=== PATIENT | male | born 1940 | race Caucasian/White ===

== ENCOUNTER → 2020-06-30 13:53 | Outpatient (BNVA) | payer MEDICARE, SELFPAY | PROVIDERS: PCP Nurse Practitioner Family; Referring Provider Nurse Practitioner Family; Visit Provider Nurse Practitioner Family | DX: I48.20 Chronic atrial fibrillation, unspecified (principal); Z51.81 Encounter for therapeutic drug level monitoring; Z79.01 Long term (current) use of anticoagulants | CPT/HCPCS: 85610; 99211 ==

== ENCOUNTER → 2020-07-14 13:17 | Outpatient (BNVA) | payer MEDICARE, SELFPAY | PROVIDERS: PCP Nurse Practitioner Family; Visit Provider Internal Medicine | DX: I48.20 Chronic atrial fibrillation, unspecified (principal); Z51.81 Encounter for therapeutic drug level monitoring; Z79.01 Long term (current) use of anticoagulants | CPT/HCPCS: 85610 ==

== ENCOUNTER → 2020-08-16 14:23 | Outpatient (BNVA) | payer MEDICARE, SELFPAY | PROVIDERS: PCP Nurse Practitioner Family; Visit Provider Internal Medicine | DX: I48.20 Chronic atrial fibrillation, unspecified (principal); Z51.81 Encounter for therapeutic drug level monitoring; Z79.01 Long term (current) use of anticoagulants | CPT/HCPCS: 85610; 99211 ==

== ENCOUNTER → 2020-08-23 13:27 | Outpatient (BNVA) | payer MEDICARE, SELFPAY | PROVIDERS: PCP Nurse Practitioner Family; Visit Provider Internal Medicine | DX: I48.20 Chronic atrial fibrillation, unspecified (principal); Z51.81 Encounter for therapeutic drug level monitoring; Z79.01 Long term (current) use of anticoagulants | CPT/HCPCS: 85610; 99211 ==

== ENCOUNTER → 2020-08-30 14:06 | Outpatient (BNVA) | payer MEDICARE, SELFPAY | PROVIDERS: PCP Nurse Practitioner Family; Visit Provider Internal Medicine | DX: I48.20 Chronic atrial fibrillation, unspecified (principal); Z51.81 Encounter for therapeutic drug level monitoring; Z79.01 Long term (current) use of anticoagulants | CPT/HCPCS: 85610; 99211 ==

== ENCOUNTER → 2020-09-13 13:54 | Outpatient (BNVA) | payer MEDICARE, SELFPAY | PROVIDERS: PCP Nurse Practitioner Family; Visit Provider Internal Medicine | DX: I48.20 Chronic atrial fibrillation, unspecified (principal); Z51.81 Encounter for therapeutic drug level monitoring; Z79.01 Long term (current) use of anticoagulants | CPT/HCPCS: 85610; 99211 ==

== ENCOUNTER → 2020-09-20 13:35 | Outpatient (BNVA) | payer MEDICARE, SELFPAY | PROVIDERS: PCP Nurse Practitioner Family; Visit Provider Internal Medicine | DX: I48.20 Chronic atrial fibrillation, unspecified (principal); Z79.01 Long term (current) use of anticoagulants; Z51.81 Encounter for therapeutic drug level monitoring | CPT/HCPCS: 85610; 99211 ==

== ENCOUNTER → 2020-09-26 13:00 | Outpatient (BNVA) | payer MEDICARE, SELFPAY | PROVIDERS: PCP Nurse Practitioner Family; Visit Provider Internal Medicine | DX: I48.19 Other persistent atrial fibrillation (principal); I65.22 Occlusion and stenosis of left carotid artery; I10 Essential (primary) hypertension; R94.39 Abnormal result of other cardiovascular function study; F03.90 Unspecified dementia, unspecified severity, without behavioral disturbance, psychotic disturbance, mood disturbance, and anxiety | CPT/HCPCS: 99212 ==

== ENCOUNTER → 2020-09-27 13:20 | Outpatient (BNVA) | payer MEDICARE, SELFPAY | PROVIDERS: PCP Nurse Practitioner Family; Visit Provider Internal Medicine | DX: I48.20 Chronic atrial fibrillation, unspecified (principal); Z51.81 Encounter for therapeutic drug level monitoring; Z79.01 Long term (current) use of anticoagulants | CPT/HCPCS: 85610; 99211 ==

== ENCOUNTER → 2020-10-04 13:36 | Outpatient (BNVA) | payer MEDICARE, SELFPAY | PROVIDERS: PCP Nurse Practitioner Family; Visit Provider Internal Medicine | DX: I48.20 Chronic atrial fibrillation, unspecified (principal); Z51.81 Encounter for therapeutic drug level monitoring; Z79.01 Long term (current) use of anticoagulants | CPT/HCPCS: 85610; 99211 ==

== ENCOUNTER → 2020-10-10 13:06 | Outpatient (BNVA) | payer MEDICARE, SELFPAY | PROVIDERS: PCP Nurse Practitioner Family; Visit Provider Internal Medicine | DX: I48.0 Paroxysmal atrial fibrillation (principal); Z79.01 Long term (current) use of anticoagulants; Z51.81 Encounter for therapeutic drug level monitoring | CPT/HCPCS: 85610; 99211 ==

== ENCOUNTER → 2020-10-21 13:22 | Outpatient (BNVA) | payer MEDICARE, SELFPAY | PROVIDERS: PCP Nurse Practitioner Family; Visit Provider Internal Medicine | DX: I48.20 Chronic atrial fibrillation, unspecified (principal); Z79.01 Long term (current) use of anticoagulants; Z51.81 Encounter for therapeutic drug level monitoring | CPT/HCPCS: 85610 ==

== ENCOUNTER → 2020-10-27 13:06 | Outpatient (BNVA) | payer MEDICARE, SELFPAY | PROVIDERS: PCP Nurse Practitioner Family; Visit Provider Internal Medicine | DX: I48.20 Chronic atrial fibrillation, unspecified (principal); Z51.81 Encounter for therapeutic drug level monitoring; Z79.01 Long term (current) use of anticoagulants | CPT/HCPCS: 85610; 99211 ==

== ENCOUNTER → 2020-11-16 13:47 | Outpatient (BNVA) | payer MEDICARE, SELFPAY | PROVIDERS: PCP Nurse Practitioner Family; Visit Provider Internal Medicine | DX: I48.20 Chronic atrial fibrillation, unspecified (principal); Z51.81 Encounter for therapeutic drug level monitoring; Z79.01 Long term (current) use of anticoagulants | CPT/HCPCS: 85610; 99211 ==

== ENCOUNTER → 2020-11-25 13:18 | Outpatient (BNVA) | payer MEDICARE, SELFPAY | PROVIDERS: PCP Nurse Practitioner Family; Visit Provider Internal Medicine | DX: I48.20 Chronic atrial fibrillation, unspecified (principal); Z51.81 Encounter for therapeutic drug level monitoring; Z79.01 Long term (current) use of anticoagulants | CPT/HCPCS: 85610; 99211 ==

== ENCOUNTER → 2020-12-09 13:23 | Outpatient (BNVA) | payer MEDICARE, SELFPAY | PROVIDERS: PCP Nurse Practitioner Family; Visit Provider Internal Medicine | DX: I48.20 Chronic atrial fibrillation, unspecified (principal); Z51.81 Encounter for therapeutic drug level monitoring; Z79.01 Long term (current) use of anticoagulants | CPT/HCPCS: 85610; 99211 ==

== ENCOUNTER → 2020-12-23 13:01 | Outpatient (BNVA) | payer MEDICARE, SELFPAY | PROVIDERS: PCP Nurse Practitioner Family; Visit Provider Internal Medicine | DX: I48.20 Chronic atrial fibrillation, unspecified (principal); Z51.81 Encounter for therapeutic drug level monitoring; Z79.01 Long term (current) use of anticoagulants | CPT/HCPCS: 85610; 99211 ==

== ENCOUNTER → 2021-01-13 13:24 | Outpatient (BNVA) | payer MEDICARE, SELFPAY | PROVIDERS: PCP Nurse Practitioner Family; Visit Provider Internal Medicine | DX: I48.20 Chronic atrial fibrillation, unspecified (principal); Z51.81 Encounter for therapeutic drug level monitoring; Z79.01 Long term (current) use of anticoagulants | CPT/HCPCS: 85610; 99211 ==

== ENCOUNTER → 2021-02-10 13:41 | Outpatient (BNVA) | payer MEDICARE, SELFPAY | PROVIDERS: PCP Nurse Practitioner Family; Visit Provider Internal Medicine | DX: I48.20 Chronic atrial fibrillation, unspecified (principal); Z51.81 Encounter for therapeutic drug level monitoring; Z79.01 Long term (current) use of anticoagulants | CPT/HCPCS: 85610; 99211 ==

== ENCOUNTER 2021-02-22 14:30 | Outpatient (REF) | payer MEDICARE, SELFPAY ==
[2021-02-22 16:07] LABS: Glucose Urine UA NEG (NEG); Leukocyte Esterase Urine NEG (NEG); Nitrite Urine NEG (NEG); PH 5.5 (5.0-8.0); Specific Gravity - Urine 1.025 (1.005-1.025); Urine Blood 3+ (NEG); Urine Ketones 5 MG/DL (NEG); Urine Protein 2+ MG/DL (NEG-TRACE)
[2021-02-22 16:09] LABS: Appearance Urine CLOUDY; Color Urine BROWN
[2021-02-22 16:16] LABS: Bacteria Urine TRACE /LPF; Hyaline Casts Urine 0-2 /LPF; Mucus Urine TRACE /LPF; RBC Urine TNTC /HPF (0); WBC Urine 0-2 /HPF (0-4)
[2021-02-22 16:26] LABS: Anion Gap 12 (12-20); Blood Urea Nitrogen 27 mg/dL (9-16); Calcium 8.6 mg/dL (8.4-10.2); Carbon Dioxide 25 mmol/L (22-29); Chloride 106 mmol/L (96-108); Estimated Glomerular Filt Rate 41; Glucose Random 109 mg/dL (60-115); Potassium 4.3 mmol/L (3.3-5.1); Sodium 139 mmol/L (135-145)
== END 2021-02-22 14:31 | disposition home or self-care (01) ==
LOC: HO.HMGCLDS 14:30
PROVIDERS: PCP Nurse Practitioner Family; Visit Provider Nurse Practitioner Family
DX: I48.91 Unspecified atrial fibrillation (principal); I95.9 Hypotension, unspecified; R32 Unspecified urinary incontinence
CPT/HCPCS: 36415; 80048; 81001; 87086

== ENCOUNTER 2021-02-23 13:35 | Emergency (ER) | payer OTHER, MEDICARE, SELFPAY ==
--- NOTE | ~2021-02-23 | CT_ITS ---
EXAMINATION: CT HEAD WITHOUT CONTRAST CLINICAL INFORMATION: Confusion, weakness, word finding difficulties. COMPARISON: CT head 09/24/2019 TECHNIQUE: Contiguous axial imaging was performed from the skull base to vertex without intravenous administration of contrast. Additional 2-D coronal and sagittal reformatted images are generated on the CT workstation and uploaded to PACS. This CT examination was performed using dose optimization techniques as appropriate, variously including the following: *Automated exposure control *Adjustment of mA and/or kV according to patient size (this includes techniques or standardized protocols for targeted exams where dose is matched to indication/reason for exam; i.e. extremities or head) *Use of iterative reconstruction technique DLP: 756 mGy-cm FINDINGS: There is no intracranial hemorrhage, hematoma, or extra-axial fluid collection. There is no hydrocephalus, edema, or mass effect. There are atrophic changes with prominence of the cortical sulci and fissures and cisterns similar to prior study. Again, there is moderate bilateral periventricular white matter gliosis consistent with small vessel ischemic changes. Small infarct left caudate head is stable. There are punctate bilateral basal ganglia calcifications again seen. There is no visible acute territorial infarct or mass lesion. The calvarium appears intact. There is no pneumocephalus or orbital emphysema. The visualized sinuses and middle ears and mastoid air cells show no significant mucosal thickening. There are no air-fluid levels. CT/CT head/brain wo con IMPRESSION: 1. No acute intracranial abnormality. 2. Generalized atrophic changes, periventricular white matter gliosis, and small chronic infarct left caudate head, similar to CT had 09/24/2019.
--- NOTE | ~2021-02-23 | XR_ITS ---
EXAMINATION: XR CHEST CLINICAL INFORMATION: Altered mental status, difficult finding words. Weakness, confusion COMPARISON: Chest radiographs 05/20/2020, 05/16/2020 TECHNIQUE: Portable upright AP view of the chest was obtained. FINDINGS: There are accentuated reticular markings at the bilateral lateral bases similar to prior studies. There is no lobar or segmental airspace consolidation, vascular congestion, groundglass opacity, or effusion. The heart is normal in size and the hilar and mediastinal contours are normal. No visible acute bony abnormality. XR/XR chest 1V IMPRESSION: No acute intrathoracic disease.
--- NOTE | ~2021-02-23 | CT_ITS ---
EXAMINATION: CT ABDOMEN AND PELVIS WITHOUT CONTRAST CLINICAL INFORMATION: Abdominal pain, hematuria COMPARISON: Renal ultrasound 04/25/2020, CT abdomen and pelvis 12/31/2006. TECHNIQUE: Multidetector volumetric imaging was performed from the superior aspect of the liver through the pubic symphysis. Sagittal and coronal reformatted images were obtained on the technologist's workstation. No oral or intravenous contrast. This CT examination was performed using dose optimization techniques as appropriate, variously including the following: *Automated exposure control *Adjustment of mA and/or kV according to patient size (this includes techniques or standardized protocols for targeted exams where dose is matched to indication/reason for exam; i.e. extremities or head) *Use of iterative reconstruction technique DLP: 606 mGy-cm FINDINGS: LUNG BASES: There are accentuated bibasilar subpleural reticular markings without airspace consolidation or effusion. LIVER, GALLBLADDER, AND BILIARY TREE: The liver is normal in size and smooth in contour. Parenchymal appears homogeneous. No focal hepatic parenchymal lesion or intrahepatic ductal dilatation. The gallbladder is unremarkable with no evidence of radiopaque gallstones, gallbladder wall thickening, or obvious pericholecystic inflammatory changes. PANCREAS: Unremarkable. SPLEEN: Unremarkable. ADRENAL GLANDS: Unremarkable. KIDNEYS AND URETERS: The kidneys are normal in size and smooth in contour. There is no hydronephrosis, hydroureter, calculi, or perinephric stranding. There are calcifications in the bilateral renal sinuses which are related to the vasculature. BLADDER: There is nodular indentation bladder base by the prostate. Mild bladder wall thickening is seen slightly thicker on the right, likely chronic outlet obstruction. Given the history of hematuria, further assessment with cystoscopy may be considered. GASTROINTESTINAL TRACT: There is no bowel obstruction or inflammatory changes in the bowel or mesentery. The appendix is normal. There is no ascites or fluid collection. ABDOMINAL WALL: Small bilateral inguinal hernias, fat-containing left and with retracted testicle on right. LYMPH NODES: Prominent left inguinal node 2.5 x 1.5 cm. No retroperitoneal or deep pelvic lymphadenopathy. VASCULAR: Atherosclerotic calcifications vasculature multiple vessels. PELVIC VISCERA: Enlarged nodular prostate indenting the bladder base. Central prostatic calcifications. Pelvic side wall soft tissues unremarkable. OSSEOUS STRUCTURES: Degenerative changes spine with scattered bridging osteophytes. No acute bony abnormality. CT/CT abdomen pelvis wo con IMPRESSION: 1. Enlarged nodular prostate indenting the bladder base with smooth asymmetric bladder wall thickening. 2. No hydronephrosis, hydroureter, or perinephric stranding. 3. Small bilateral inguinal hernias, fat-containing on left and with retracted testicle on right. Prominent left inguinal node 2.5 x 1.5 cm.
[2021-02-23 13:40] VITALS: BP 116/55; PULSE 70; RESP 16; TEMP 36.4; O2SAT 97; BMI 22.4
--- NOTE | 2021-02-23 14:25 | ECG_ITS ---
Test Reason : WEAKNESS Blood Pressure : / mmHG Vent. Rate : 056 BPM Atrial Rate : 048 BPM P-R Int : 000 ms QRS Dur : 104 ms QT Int : 418 ms P-R-T Axes : 000 -60 -02 degrees QTc Int : 403 ms Atrial fibrillation with slow ventricular response Left axis deviation Septal infarct (cited on or before 06-APR-2018) Abnormal ECG When compared with ECG of 20-MAY-2020 16:31, No significant changes seen Referred By: Lisa Navarrete Electronically Signed By:MARISA MINOR
--- NOTE | 2021-02-23 14:34 | ED_ITS ---
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 She states she brought him to a walkin at [facility] yesterday where he had a grossly blood urine sample. She was not given any results and when she called the clinic this morning she reports that they told her to bring him to the ER yesterday for evaluation. He has more easily fatigued and doing less around the house. Patient denies dysuria, frequency or urgency. No N/V or diarrhea but he has had new bowel incontinence and not making it to the bathroom in time. He denies abdominal pain. No blood in his stool. Last INR was a week and a half ago and it was therapeutic. MD complaint: hematuria + confusion Onset (ago): day(s) (4) Location: abdomen Radiation: non-radiation Severity: mild Pain Consistency: intermittent Relieving factors: none Exacerbating factors: none Associated symptoms: confusion and weakness Treatments prior to arrival: none Related Data Home Medications Medication Instructions Recorded Confirmed donepezil 5 mg tablet 5 mg PO DAILY 07/05/20 02/23/21 finasteride 5 mg tablet 5 mg PO DAILY 07/05/20 02/23/21 terazosin 5 mg PO DAILY 02/23/21 02/23/21 warfarin [Coumadin] 2.5 mg PO Q OTHER DAY 02/23/21 02/23/21 warfarin [Coumadin] 5 mg PO Q OTHER DAY 02/23/21 02/23/21 Previous Rx's Medication Instructions Recorded atorvastatin 40 mg tablet 40 mg PO DAILY 30 Days #30 tab 10/04/20 folic acid 1 mg tablet 1 mg PO DAILY 30 Days #30 tab 10/04/20 Adult disposeable briefs #30 ea 12/01/20 allopurinol 100 mg tablet 100 mg PO DAILY #30 tab 02/16/21 amlodipine 5 mg tablet 5 mg PO DAILY #30 tab 02/16/21 risperidone 0.25 mg tablet 0.25 mg PO DAILY PRN #30 tab 02/16/21 cefuroxime axetil 250 mg PO BID 7 Days #14 tab 02/23/21 Allergies Allergy/AdvReac Type Severity Reaction Status Date / Time No Known Allergies Allergy Verified 02/23/21 13:45 Review of Systems Review of Systems: Constitutional: No Fever, No Chills ENT/Mouth: No sore throat, No Rhinorrhea, No Swallowing Difficulty Eyes: No Eye Pain, No Swelling, No Redness Cardiovascular: No Chest Pain, No SOB, No Orthopnea, No Edema Respiratory: No Cough, No Sputum, No Wheezing, No dyspnea Gastrointestinal: No Nausea, No Vomiting, No Diarrhea, No abdominal Pain, No Hematochezia, No Melena Genitourinary: No Dysuria, No Urinary Frequency, + Hematuria Musculoskeletal: No joint pain, No Myalgias Skin: No Skin Lesions, No rash Neuro: + Weakness (generalized), No Numbness, No Dizziness, No Headache, +Confusion Psych: No Anxiety/Panic, No Depression Heme/Lymph: No Bruising, No Lymphadenopathy Endocrine: No Polyuria, No Polydipsia PMFSH Past Medical History Attestation statement: The following information was validated with the patient. Medical History Abnormal stress test Anemia Deficiency of vitamin B12 Dementia without behavioral disturbance Essential hypertension Gout HTN (hypertension) Hypotension Memory disorder Persistent atrial fibrillation Prostate cancer Proteinuria Stenosis of left internal carotid artery Surgical History H/O cystoscopy Family History Family History Father Alzheimer disease Mother No problems noted. Social History Social History (Updated 09/26/20 @ 13:52 by Lisa Kirkland Sara) Advance Directives: No Advance Directives Information Provided: No Physical Exam Vital Signs: Vital Signs: Last Vital Signs Temp 97.8 F 02/23/21 16:53 Pulse 61 02/23/21 16:53 Resp 16 02/23/21 16:53 BP 144/60 H 02/23/21 16:53 Pulse Ox 96 02/23/21 16:53 Body Mass Index 22.4 Appearance: Alert elderly male resting in bed. Oriented X2. No acute distress. Eyes: Pupils equal, round and reactive to light. ENT: Pharynx normal. Neck: Normal inspection. Neck supple. CVS: Irregularly irregular, bradycardic. Pulses normal. Respiratory: No respiratory distress. Breath sounds normal. Abdomen: Soft with lower abdominal tenderness + guarding, no rebound. +BS x4. No palpable masses. No testicular tenderness. Skin: Skin warm and dry. Normal skin color. Normal skin turgor. No rashes. Extremities: No lower extremity edema. Neuro: Oriented X 2. Word finding difficulties, confused. Awake and alert. No focal weakness. Course Course Course Narrative: 81 y/o male with history of dementia presenting with hematuria and increased weakness and confusion from his baseline. Possible UTI. He is afebrile and hemodynamically stable with HR 50-60's. No syncopal episodes at home. Will get UA, EKG, lab workup and CT head. He has a non-focal neuro examination however given dementia it is difficult to follow commands consistently. Reevaluation(s) Reevaluation #1: No leukocytosis. H/H at baseline. BUN/Cr 26/1.55 which is improved from yesterday's blood work with 27/.62. UA is negative for infection,. +blood & protein which he has had before. It appears he has chronic hematuria. CT head 1. No acute intracranial abnormality. 2. Generalized atrophic changes, periventricular white matter gliosis, and small chronic infarct left caudate head, similar to CT had 09/24/2019. Will proceed with dry CT abdomen to assess his abdominal tenderness. HR 60's not on any shahram blocking agents. BP stable. Reevaluation #2: CT abd showing 1. Enlarged nodular prostate indenting the bladder base with smooth asymmetric bladder wall thickening. 2. No hydronephrosis, hydroureter, or perinephric stranding. 3. Small bilateral inguinal hernias, fat-containing on left and with retracted testicle on right. Prominent left inguinal node 2.5 x 1.5 cm. No palpable hernias on examination, no tenderness or evidence of strangulation/incarceration. Per family his last cystoscopy was ?1 year ago. Unclear what his prostate cancer treatment was. Results d/w family about recurrence and need for f/u with Urology. They agree. Discussed possible admission vs PT evaluation for STR or PT at home however family reports with his dementia he does much better at home. Son stating last time he was admitted here they were called to come pick him up because of behavioral issues. They agree to follow up with PCP next week and Urology as well. Will gently hydrate and plan for d/c home in the care of his family. Patient restless and wanting to leave. He is eating and drinking normally. Blood work and UA discussed with son at the bedside. PO fluids encouraged. Discussed empiric Ceftin for possible cystitis. OK for D/C home with close outpatient follow up and care of his family. Medical Decision Making Lab Data Result diagrams: 02/23/21 15:09 02/23/21 15:09 Labs: Lab Results 02/23/21 02/23/21 02/23/21 Range/Units 15:09 15:09 15:09 WBC 5.7 (4.8-10.8) X10*3/uL RBC 4.46 L (4.60-5.80) X10*6/uL Hgb 13.8 L (14.0-18.0) g/dl Hct 43.0 (42-52) % MCV 96.4 (80-98) fL MCH 30.9 (27.0-33.0) pg MCHC 32.1 (31.0-36.0) g/dl RDW 13.6 (11.0-16.0) % Plt Count 179 (160-400) X10*3/uL MPV 9.5 (9.4-12.4) fL Immature Gran % (Auto) 0.2 (0.0-0.4) % Neut % (Auto) 67.1 (45-73) % Lymph % (Auto) 22.1 (20-40) % [place] % (Auto) 8.0 (2-11) % Eos % (Auto) 2.1 (0-4) % Baso % (Auto) 0.5 (0-2) % Lymph # (Auto) 1.3 (1.2-4.9) X10*3/uL [place] # (Auto) 0.5 (0.1-1.2) X10*3/uL Eos # (Auto) 0.1 (0.0-0.4) X10*3/uL Baso # (Auto) 0.0 (0.0-0.2) X10*3/uL Abs Immat Gran (auto) 0.01 (0.00-0.03) X10*3/uL Absolute Neuts (auto) 3.8 (2.0-8.3) X10*3/uL Absolute Nucleated RBC 0.000 (0.0-0.012) X10*3/uL Nucleated RBC % (auto) 0.0 (0.0-0.2) /100WBC PT (10.8-13.0) SEC INR (0.9-1.1) APTT (24.1-38.0) SEC Sodium 142 (135-145) mmol/L Potassium 4.5 (3.3-5.1) mmol/L Chloride 107 (96-108) mmol/L Carbon Dioxide 28 (22-29) mmol/L Anion Gap 12 (12-20) BUN 26 H (9-16) mg/dL Creatinine 1.55 H (0.5-1.4) mg/dL Estim Creat Clear Calc 41.2 Estimated GFR 43 Random Glucose 110 (60-115) mg/dL Lactic Acid 1.4 (0.5-2.0) mmol/L Calcium 8.9 (8.4-10.2) mg/dL Magnesium 2.2 (1.6-2.6) mg/dL Total Bilirubin 1.3 H (0.0-1.0) mg/dL Direct Bilirubin 0.5 (0.0-0.5) mg/dL AST 16 (5-37) U/L ALT 18 (0-40) U/L Alkaline Phosphatase 100 (39-117) U/L Total Protein 6.4 L (6.5-8.0) g/dL Albumin 3.7 (3.5-5.0) g/dL Urine Color Urine Appearance Urine pH (5.0-8.0) Ur Specific [place] (1.005-1.025) Urine Protein (NEG-TRACE) MG/DL Urine Glucose (UA) (NEG) MG/DL Urine Ketones (NEG) MG/DL Urine Blood (NEG) Urine Nitrite (NEG) Ur Leukocyte Esterase (NEG) Urine RBC (0) /HPF Urine WBC (0-4) /HPF Ur Squamous Epith Cells /LPF Amorphous Sediment /LPF Urine Bacteria /LPF RBC Casts /LPF Urine Mucus /LPF COVID-19 (NOAM) (Negative) COVID-19 Clin Com 02/23/21 02/23/21 02/23/21 Range/Units 15:09 15:10 15:44 WBC (4.8-10.8) X10*3/uL RBC (4.60-5.80) X10*6/uL Hgb (14.0-18.0) g/dl Hct (42-52) % MCV (80-98) fL MCH (27.0-33.0) pg MCHC (31.0-36.0) g/dl RDW (11.0-16.0) % Plt Count (160-400) X10*3/uL MPV (9.4-12.4) fL Immature Gran % (Auto) (0.0-0.4) % Neut % (Auto) (45-73) % Lymph % (Auto) (20-40) % [place] % (Auto) (2-11) % Eos % (Auto) (0-4) % Baso % (Auto) (0-2) % Lymph # (Auto) (1.2-4.9) X10*3/uL [place] # (Auto) (0.1-1.2) X10*3/uL Eos # (Auto) (0.0-0.4) X10*3/uL Baso # (Auto) (0.0-0.2) X10*3/uL Abs Immat Gran (auto) (0.00-0.03) X10*3/uL Absolute Neuts (auto) (2.0-8.3) X10*3/uL Absolute Nucleated RBC (0.0-0.012) X10*3/uL Nucleated RBC % (auto) (0.0-0.2) /100WBC PT 38.2 H (10.8-13.0) SEC INR 3.2 H (0.9-1.1) APTT 56.9 H (24.1-38.0) SEC Sodium (135-145) mmol/L Potassium (3.3-5.1) mmol/L Chloride (96-108) mmol/L Carbon Dioxide (22-29) mmol/L Anion Gap (12-20) BUN (9-16) mg/dL Creatinine (0.5-1.4) mg/dL Estim Creat Clear Calc Estimated GFR Random Glucose (60-115) mg/dL Lactic Acid (0.5-2.0) mmol/L Calcium (8.4-10.2) mg/dL Magnesium (1.6-2.6) mg/dL Total Bilirubin (0.0-1.0) mg/dL Direct Bilirubin (0.0-0.5) mg/dL AST (5-37) U/L ALT (0-40) U/L Alkaline Phosphatase (39-117) U/L Total Protein (6.5-8.0) g/dL Albumin (3.5-5.0) g/dL Urine Color BROWN Urine Appearance CLOUDY Urine pH 6.0 (5.0-8.0) Ur Specific [place] 1.015 (1.005-1.025) Urine Protein 1+ H (NEG-TRACE) MG/DL Urine Glucose (UA) NEG (NEG) MG/DL Urine Ketones NEG (NEG) MG/DL Urine Blood 3+ H (NEG) Urine Nitrite NEG (NEG) Ur Leukocyte Esterase NEG (NEG) Urine RBC 76-150 H (0) /HPF Urine WBC 0 (0-4) /HPF Ur Squamous Epith Cells TRACE /LPF Amorphous Sediment 1+ /LPF Urine Bacteria TRACE /LPF RBC Casts 0-2 /LPF Urine Mucus 1+ /LPF COVID-19 (NOAM) Negative (Negative) COVID-19 Clin Com See Note Discharge Plan Discharge Clinical Impression: Enlarged prostate Hematuria Qualifiers: Hematuria type: unspecified type Qualified Code(s): R31.9 - Hematuria, unspecified Dementia Qualifiers: Dementia type: Alzheimer's Alzheimer's disease onset: unspecified onset Dementia behavioral disturbance: without behavioral disturbance Qualified Code(s): G30.9 - Alzheimer's disease, unspecified Patient Disposition: Home, Self-Care Instructions: Prostate Cancer (DC), Hematuria (ED), Interstitial Cystitis (ED) Additional Instructions: Your blood work showed evidence of mild dehydration. Increase your water intake, drink plenty of fluids. Your CT scan showed an enlarged prostate, abnormal bladder wall thickening and lymph nodes. Recommend following up with your Urologist KIM. Your INR level was slightly elevated at 3.2 today. Recommend following up with another INR level early next week. Follow up with your doctor on Saturday. If you have increased in bloody urine, abdominal pain, nausea, vomiting, increased confusion or weakness call 911 or come back to the ER for further evaluation. Prescriptions: New cefuroxime axetil 250 mg tablet 250 mg PO BID 7 Days Qty: 14 RF: 0 No Action atorvastatin 40 mg tablet 40 mg PO DAILY 30 Days Qty: 30 RF: 3 folic acid 1 mg tablet 1 mg PO DAILY 30 Days Qty: 30 RF: 3 (DME) Adult disposeable briefs See Rx Instructions .Route .MEDSUPPLY Qty: 30 RF: 12 risperidone 0.25 mg tablet 0.25 mg PO DAILY PRN (Reason: for restless legs) Qty: 30 RF: 3 allopurinol 100 mg tablet 100 mg PO DAILY Qty: 30 RF: 3 amlodipine 5 mg tablet 5 mg PO DAILY Qty: 30 RF: 3 warfarin [Coumadin] 2.5 mg Tablet 2.5 mg PO Q OTHER DAY RF: 0 warfarin [Coumadin] 5 mg Tablet 5 mg PO Q OTHER DAY RF: 0 terazosin 5 mg capsule 5 mg PO DAILY RF: 0 finasteride 5 mg tablet 5 mg PO DAILY RF: 0 donepezil 5 mg tablet 5 mg PO DAILY RF: 0 Referrals: Ryder Luke MD [Physician] - 2 days (hx prostate cancer, hematuria, enlarged nodular prostate on CT w/ asymmetric bladder wall thickening and inguinal LN)
[2021-02-23 15:16] LABS: MANUAL DIFF FLAG NO
[2021-02-23 15:18] LABS: Basophils Percent Auto 0.5 % (0-2); Eosinophils Absolute Auto 0.1 X10*3/uL (0.0-0.4); Eosinophils Percent Auto 2.1 % (0-4); Hemoglobin 13.8 g/dl (14.0-18.0); Imm Gran Abs Auto 0.01 X10*3/uL (0.00-0.03); Imm Gran Pct Auto 0.2 % (0.0-0.4); Lymphocytes Absolute Auto 1.3 X10*3/uL (1.2-4.9); Lymphocytes Percent Auto 22.1 % (20-40); Mean Corpuscular HGB Conc 32.1 g/dl (31.0-36.0); Mean Corpuscular Hemoglobin 30.9 pg (27.0-33.0); Mean Corpuscular Volume 96.4 fL (80-98); Mean Platelet Volume 9.5 fL (9.4-12.4); Monocytes Absolute Auto 0.5 X10*3/uL (0.1-1.2); Neutrophils Absolute Auto 3.8 X10*3/uL (2.0-8.3); Neutrophils Percent Auto 67.1 % (45-73); Platelet Count 179 X10*3/uL (160-400); Red Blood Count 4.46 X10*6/uL (4.60-5.80); Red Cell Distribution Width 13.6 % (11.0-16.0); White Blood Count 5.7 X10*3/uL (4.8-10.8)
[2021-02-23 15:21] LABS: Glucose Urine UA NEG (NEG); Leukocyte Esterase Urine NEG (NEG); Nitrite Urine NEG (NEG); Specific Gravity - Urine 1.015 (1.005-1.025); Urine Blood 3+ (NEG); Urine Ketones NEG (NEG); Urine Protein 1+ MG/DL (NEG-TRACE)
[2021-02-23 15:24] LABS: Appearance Urine CLOUDY; Color Urine BROWN
[2021-02-23 15:32] VITALS: BP 134/64; PULSE 58; RESP 18; TEMP 31.8; O2SAT 96
[2021-02-23 15:36] LABS: INTERNATIONAL NORM RATIO 3.2 (0.9-1.1); Prothrombin Time 38.2 SEC (10.8-13.0)
[2021-02-23 15:42] LABS: Partial Thromboplastin Time 56.9 SEC (24.1-38.0)
[2021-02-23 15:45] LABS: Amorphous Sediment Urine 1+ /LPF; Bacteria Urine TRACE /LPF; Mucus Urine 1+ /LPF; Squamous Epithelial Cell Urine TRACE /LPF; WBC Urine 0 /HPF (0-4)
[2021-02-23 15:46] LABS: Red Blood Cell Casts Urine 0-2 /LPF
--- NOTE | 2021-02-23 15:48 | HE.PHANOTE ---
Med Rec complete at this time. Pt DIL reports PT's warfarin dose is 2.5mg q48h alternating 5mg q48h based [facility]
[2021-02-23 15:49] LABS: Alanine Aminotransferase 18 U/L (0-40); Albumin Level 3.7 g/dL (3.5-5.0); Alkaline Phosphatase 100 U/L (39-117); Anion Gap 12 (12-20); Aspartate Amino Transferase 16 U/L (5-37); Bilirubin Direct 0.5 mg/dL (0.0-0.5); Bilirubin Total 1.3 mg/dL (0.0-1.0); Blood Urea Nitrogen 26 mg/dL (9-16); Calcium 8.9 mg/dL (8.4-10.2); Carbon Dioxide 28 mmol/L (22-29); Chloride 107 mmol/L (96-108); Creatinine Clr Calc Pharmacy 41.2; Estimated Glomerular Filt Rate 43; Glucose Random 110 mg/dL (60-115); Magnesium 2.2 mg/dL (1.6-2.6); Potassium 4.5 mmol/L (3.3-5.1); Sodium 142 mmol/L (135-145); Total Protein 6.4 g/dL (6.5-8.0)
[2021-02-23 15:52] LABS: Lactic Acid 1.4 mmol/L (0.5-2.0)
[2021-02-23 16:09] LABS: COVID-19 Test Negative (Negative)
[2021-02-23 16:53] VITALS: BP 144/60; PULSE 61; RESP 16; TEMP 36.6; O2SAT 96
== END 2021-02-23 17:56 | disposition home or self-care (01) ==
PROVIDERS: Physician Assistant; Emergency Provider Emergency Medicine; PCP Nurse Practitioner Family
DX: N40.0 Benign prostatic hyperplasia without lower urinary tract symptoms (principal); R31.9 Hematuria, unspecified; G30.9 Alzheimer's disease, unspecified; E86.0 Dehydration; R41.0 Disorientation, unspecified; R10.2 Pelvic and perineal pain; I48.91 Unspecified atrial fibrillation; R53.1 Weakness; Z20.822 Contact with and (suspected) exposure to COVID-19; Z79.01 Long term (current) use of anticoagulants; Z79.899 Other long term (current) drug therapy
CPT/HCPCS: 36415; 70450; 71045; 74176; 80048; 80076; 81001; 83605; 83735; 85025; 85610; 85730; 87040; 87635; 93005; 99283

== ENCOUNTER → 2021-03-01 13:54 | Outpatient (BNVA) | payer OTHER, MEDICARE, SELFPAY | PROVIDERS: PCP Nurse Practitioner Family; Visit Provider Internal Medicine | DX: I48.20 Chronic atrial fibrillation, unspecified (principal); Z51.81 Encounter for therapeutic drug level monitoring; Z79.01 Long term (current) use of anticoagulants | CPT/HCPCS: 85610; 99211 ==

== ENCOUNTER → 2021-03-07 14:16 | Outpatient (BNVA) | payer MEDICARE, SELFPAY | PROVIDERS: PCP Nurse Practitioner Family; Visit Provider Urology | DX: Z13.89 Encounter for screening for other disorder (principal) | CPT/HCPCS: 99212 ==

== ENCOUNTER → 2021-03-08 14:34 | Outpatient (BNVA) | payer OTHER, MEDICARE, SELFPAY | PROVIDERS: PCP Nurse Practitioner Family; Visit Provider Internal Medicine | DX: I48.20 Chronic atrial fibrillation, unspecified (principal); Z51.81 Encounter for therapeutic drug level monitoring; Z79.01 Long term (current) use of anticoagulants | CPT/HCPCS: 85610; 99211 ==

== ENCOUNTER → 2021-03-13 13:26 | Outpatient (BNVA) | payer OTHER, MEDICARE, SELFPAY | PROVIDERS: PCP Nurse Practitioner Family; Visit Provider Internal Medicine | DX: I48.20 Chronic atrial fibrillation, unspecified (principal); Z51.81 Encounter for therapeutic drug level monitoring; Z79.01 Long term (current) use of anticoagulants | CPT/HCPCS: 85610; 99211 ==

== ENCOUNTER → 2021-03-17 14:03 | Outpatient (BNVA) | payer OTHER, MEDICARE, SELFPAY | PROVIDERS: PCP Nurse Practitioner Family; Visit Provider Internal Medicine | DX: I48.20 Chronic atrial fibrillation, unspecified (principal); Z51.81 Encounter for therapeutic drug level monitoring; Z79.01 Long term (current) use of anticoagulants | CPT/HCPCS: 85610; 99211 ==

== ENCOUNTER → 2021-03-20 13:29 | Outpatient (BNVA) | payer OTHER, MEDICARE, SELFPAY | PROVIDERS: PCP Nurse Practitioner Family; Visit Provider Internal Medicine | DX: I48.20 Chronic atrial fibrillation, unspecified (principal); Z51.81 Encounter for therapeutic drug level monitoring; Z79.01 Long term (current) use of anticoagulants | CPT/HCPCS: 85610; 99211 ==

== ENCOUNTER 2021-03-27 13:20 | Outpatient (REF) | payer MEDICARE, SELFPAY ==
--- NOTE | ~2021-03-27 | XR_ITS ---
EXAMINATION: XR CHEST CLINICAL INFORMATION: Cough COMPARISON: Previous chest x-ray most recent January [address] April 2020 TECHNIQUE: 2 views of the chest were obtained. FINDINGS: The cardiac and mediastinal contours are stable. There is question of a nodule in the right upper lobe measuring 7 mm. This projects over the right anterior inferior second rib. There are increased peripheral interstitial markings at the lung bases suggestive of interstitial lung disease. This appears increased from previous exam. There is no pleural effusion or pneumothorax. There are degenerative changes of the spine. There are old left rib fractures. XR/XR chest 2V IMPRESSION: Interstitial lung disease. Question 7 mm right upper lobe pulmonary nodule. Follow-up chest CT scan should be considered.
[2021-03-27 16:59] LABS: Glucose Urine UA NEG (NEG); Leukocyte Esterase Urine NEG (NEG); Nitrite Urine NEG (NEG); Urine Blood 2+ (NEG); Urine Ketones NEG (NEG); Urine Protein 1+ MG/DL (NEG-TRACE)
[2021-03-27 17:03] LABS: Alanine Aminotransferase 11 U/L (0-40); Albumin Level 3.5 g/dL (3.5-5.0); Alkaline Phosphatase 95 U/L (39-117); Anion Gap 13 (12-20); Aspartate Amino Transferase 18 U/L (5-37); Bilirubin Total 1.2 mg/dL (0.0-1.0); Blood Urea Nitrogen 24 mg/dL (9-16); Calcium 8.7 mg/dL (8.4-10.2); Carbon Dioxide 22 mmol/L (22-29); Chloride 111 mmol/L (96-108); Cholesterol 126 mg/dL; Estimated Glomerular Filt Rate 48; Glucose Random 131 mg/dL (60-115); HDL Cholesterol 40 mg/dL; LDL Cholesterol Calculated 75 mg/dl; Potassium 4.6 mmol/L (3.3-5.1); Sodium 141 mmol/L (135-145); Total Protein 6.4 g/dL (6.5-8.0); Triglycerides 56 mg/dL
[2021-03-27 17:04] LABS: Appearance Urine CLEAR; Color Urine YELLOW
[2021-03-27 17:25] LABS: TSH reflex Free T4 0.98 uIU/mL (0.32-4.0)
[2021-03-27 17:50] LABS: Hyaline Casts Urine 0-2 /LPF; Mucus Urine 1+ /LPF
== END 2021-03-27 13:21 | disposition home or self-care (01) ==
LOC: HO.HMGCX 13:20
PROVIDERS: PCP Nurse Practitioner Family; Visit Provider Internal Medicine
DX: I48.20 Chronic atrial fibrillation, unspecified (principal); R05 Cough; R39.15 Urgency of urination; Z51.81 Encounter for therapeutic drug level monitoring; Z79.01 Long term (current) use of anticoagulants
CPT/HCPCS: 36415; 71046; 80053; 80061; 81001; 84443; 85610; 87086; 99211

== ENCOUNTER → 2021-03-29 11:08 | Outpatient (BNVA) | payer MEDICARE, OTHER, SELFPAY | PROVIDERS: Visit Provider Urology | DX: R39.15 Urgency of urination (principal); R32 Unspecified urinary incontinence | CPT/HCPCS: 52000; 99212 ==

== ENCOUNTER → 2021-04-04 12:59 | Outpatient (BNVA) | payer MEDICARE, OTHER, SELFPAY | PROVIDERS: Visit Provider Nurse Practitioner Family | DX: I48.19 Other persistent atrial fibrillation (principal); I10 Essential (primary) hypertension; R94.39 Abnormal result of other cardiovascular function study; Z79.01 Long term (current) use of anticoagulants | CPT/HCPCS: 99212 ==

== ENCOUNTER 2021-04-20 12:51 | Emergency (ER) | payer OTHER, MEDICARE, SELFPAY ==
--- NOTE | ~2021-04-20 | CT_ITS ---
EXAMINATION: CT HEAD/BRAIN WITHOUT CONTRAST CLINICAL INFORMATION: Head injury COMPARISON: February 23, 2021 and September 24, 2019 TECHNIQUE: CT scanning from base of skull to vertex performed without IV contrast administration. This CT examination was performed using dose optimization techniques as appropriate, variously including the following: *Automated exposure control *Adjustment of mA and/or kV according to patient size (this includes techniques or standardized protocols for targeted exams where dose is matched to indication/reason for exam; i.e. extremities or head) *Use of iterative reconstruction technique DLP: 754.63 mGy-cm. FINDINGS: There is prominence of ventricles, sulci, and cisterns consistent with generalized atrophy. There is a large amount of periventricular white matter low density seen consistent with microangiopathy. 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 No abnormal extra-axial fluid collection or intracranial hemorrhage is seen. No significant mass effect or midline structure shift is evident. There is a right frontal and left occipital scalp hematomas. Visualized paranasal sinuses and mastoid air cells unremarkable. CT/CT cervical spine wo con IMPRESSION: No acute intracranial abnormality identified. Findings consistent with microangiopathy. EXAMINATION: CT OF THE CERVICAL SPINE CLINICAL INFORMATION: Head injury COMPARISON: None. TECHNIQUE: Thin helical images with sagittal and coronal reformats. This CT examination was performed using dose optimization techniques as appropriate, variously including the following: *Automated exposure control *Adjustment of mA and/or kV according to patient size (this includes techniques or standardized protocols for targeted exams where dose is matched to indication/reason for exam; i.e. extremities or head) *Use of iterative reconstruction technique DOSE: DLP 487.39 mGy-cm FINDINGS: No abnormal prevertebral soft tissue swelling is seen. There is significant disc space narrowing C3-C7. Anterior marginal spurring is seen most prominent C4-C6. There is some spurring of the joints of [place] causing some mild anterior neural foraminal encroachment bilaterally at the C5-C6 and C6-C7 levels. The atlantoaxial and atlanto-occipital articulations are normal. No fracture. The surrounding soft tissues are normal. There is apical pleural-parenchymal scarring present. IMPRESSION: No acute cervical spine fracture. Diffuse cervical spondylosis as described.
--- NOTE | ~2021-04-20 | CT_ITS ---
EXAMINATION: CT ABDOMEN AND PELVIS WITHOUT CONTRAST CLINICAL INFORMATION: Trauma, pain COMPARISON: CT abdomen and pelvis noncontrast 02/23/2021 TECHNIQUE: Multidetector volumetric imaging was performed from the superior aspect of the liver through the pubic symphysis. Sagittal and coronal reformatted images were obtained on the technologist's workstation. This CT examination was performed using dose optimization techniques as appropriate, variously including the following: *Automated exposure control *Adjustment of mA and/or kV according to patient size (this includes techniques or standardized protocols for targeted exams where dose is matched to indication/reason for exam; i.e. extremities or head) *Use of iterative reconstruction technique DLP: 790 mGy-cm FINDINGS: LUNG BASES: Accentuated reticular markings at the bases. No airspace consolidation or effusion. No basilar pneumothorax. LIVER, GALLBLADDER, AND BILIARY TREE: Liver is normal in size and smooth in contour and uniform in attenuation on noncontrast exam. No focal parenchymal lesion. No intrahepatic ductal dilatation. Gallbladder and common duct unremarkable. PANCREAS: Unremarkable. SPLEEN: Unremarkable. ADRENAL GLANDS: Unremarkable. KIDNEYS AND URETERS: There are bilateral renal vascular calcifications. No calculi, hydronephrosis, or perinephric stranding. BLADDER: Only partially distended with diffuse bladder wall thickening. GASTROINTESTINAL TRACT: There is no bowel obstruction or focal inflammatory changes in the bowel or mesentery. No ascites or fluid collection. Appendix unremarkable. ABDOMINAL WALL: Small fat-containing inguinal hernias, greater on left. LYMPH NODES: Stable prominent left inguinal node. 0.9 cm left periaortic retroperitoneal node. VASCULAR: Atherosclerotic calcifications vasculature. PELVIC VISCERA: Prostatic enlargement with calcification. OSSEOUS STRUCTURES: No visible acute bony abnormality. CT/CT abdomen pelvis wo con IMPRESSION: 1. No acute traumatic abnormality. 2. No acute inflammatory changes in abdomen or pelvis. 3. Enlarged prostate with diffuse bladder wall thickening. No hydronephrosis or hydroureter.
--- NOTE | ~2021-04-20 | CT_ITS ---
EXAMINATION: CT FACIAL BONES WITHOUT CONTRAST CLINICAL INFORMATION: Trauma COMPARISON: None TECHNIQUE: CT facial bones with sagittal and coronal reconstructions. This CT examination was performed using dose optimization techniques as appropriate, variously including the following: *Automated exposure control *Adjustment of mA and/or kV according to patient size (this includes techniques or standardized protocols for targeted exams where dose is matched to indication/reason for exam; i.e. extremities or head) *Use of iterative reconstruction technique DLP: 573 mGy-cm FINDINGS: There is no definite acute maxillofacial fracture. There is evidence of previous nasal bone fractures without associated soft tissue swelling probably being chronic in nature. There is a right frontal scalp hematoma. The pterygoid plates are intact. The zygomatic arches are intact. The lamina papyracea are intact. The orbital rims are intact. No intraconall abnormality is identified. The paranasal sinuses are well-aerated. No air-fluid levels are seen. The ostiomeatal complexes are clear. The lamina papyracea are intact. The ethmoid roofs are symmetric. The carotid canals are normally covered by bone. No maxillary periapical disease is seen. The mastoid air cells and visualized middle ear cavities are well-aerated. The orbits are normal. The TMJs are unremarkable. The imaged portions of the brain demonstrate no acute abnormality. CT/CT facial bones wo con IMPRESSION: No acute discrete facial bone fracture. Old bilateral nasal bone fractures. Right frontal scalp hematoma.
[2021-04-20 12:55] VITALS: BP 128/73; PULSE 74; BMI 26.5
--- NOTE | 2021-04-20 13:00 | ECG_ITS ---
Test Reason : FALL Blood Pressure : / mmHG Vent. Rate : 078 BPM Atrial Rate : 092 BPM P-R Int : 000 ms QRS Dur : 104 ms QT Int : 394 ms P-R-T Axes : 000 -59 024 degrees QTc Int : 449 ms Atrial fibrillation Left axis deviation Septal infarct (cited on or before 06-APR-2018) Abnormal ECG When compared with ECG of 23-FEB-2021 14:47, Nonspecific T wave abnormality has replaced inverted T waves in Inferior leads Referred By: Generic ED Physician Electronically Signed By:BRETT SCHULZ MD
--- NOTE | 2021-04-20 13:10 | ED.FALL ---
HPI - Fall General Chief Complaint: Fall Stated Complaint: fall,r eye contusion,on thinners/increased weaknes Time Seen by Provider: 04/20/21 13:07 History of Present Illness HPI Narrative: 81-year-old male presents today with having fallen. Patient unable to give detailed history. History of dementia. History of atrial fibrillation on blood thinners. Question Coumadin versus Eliquis. Unable to obtain detailed history of patient's has dementia Related Data Home Medications Medication Instructions Recorded Confirmed donepezil 5 mg tablet 5 mg PO DAILY 07/05/20 04/05/21 finasteride 5 mg tablet 5 mg PO DAILY 07/05/20 04/05/21 warfarin [Coumadin] 2.5 mg PO Q OTHER DAY 02/23/21 04/05/21 Previous Rx's Medication Instructions Recorded folic acid 1 mg tablet 1 mg PO DAILY 30 Days #30 tab 10/04/20 Adult disposeable briefs #30 ea 12/01/20 allopurinol 100 mg tablet 100 mg PO DAILY #30 tab 02/16/21 risperidone 0.25 mg tablet 0.25 mg PO DAILY PRN #30 tab 02/16/21 atorvastatin 40 mg tablet 40 mg PO DAILY 30 Days #30 tab 03/07/21 tolterodine 4 mg capsule,extended 4 mg PO DAILY 30 Days #30 cap 03/07/21 release 24 hr terazosin 5 mg capsule 5 mg PO DAILY 30 Days #30 cap 03/13/21 warfarin 5 mg tablet 5 mg PO Q OTHER DAY 30 Days #15 tab 03/13/21 diaper,brief,adult,disposable #100 ea 03/29/21 amlodipine 2.5 mg tablet 2.5 mg PO DAILY #90 tab 04/05/21 Allergies Allergy/AdvReac Type Severity Reaction Status Date / Time No Known Allergies Allergy Verified 04/04/21 13:19 Review of Systems Review of Systems: Unable to obtain review of systems because of patient's condition. 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 Social History Social History Housing: House Patient Tobacco Use Status: Former Tobacco user Tobacco use type: Cigarette Years Smoked: 5 years ago e-Cigarette/Vaping Use: Never Used Second Hand Smoke Exposure: No Advance Directives: No Advance Directives Information Provided: Yes Current occupational status: retired Current occupational exposures/hazards: No Physical Exam Vital Signs: Vital Signs: Last Vital Signs Pulse 74 04/20/21 12:55 BP 128/73 04/20/21 12:55 Body Mass Index 26.5 Appearance: Alert. Oriented times 0. No acute distress. Eyes: Pupils equal, round and reactive to light. Positive contusion around the right eye ENT: Pharynx normal. Neck: Normal inspection. No gross posterior C-spine tenderness elicited on palpation. No lymph nodes noted. No crepitus CVS: Normal heart rate and rhythm. Pulses normal. Normal S1 and S2 Respiratory: No respiratory distress. Breath sounds normal. No Wheezing. No rales Abdomen: Soft and nontender. No rigidity. No distention. good BS x4 Skin: Skin warm and dry. Normal skin color. Normal skin turgor. Extremities: No lower extremity edema. Neurovascular intact to all extremities. No Lacerations. No Rash Neuro: Oriented X 0. No motor deficit. No sensory deficit. Moving all extermities. No slurred speech MDM - Fall MDM Narrative Medical decision making narrative: CT scan of the head face, cervical spine were all grossly negative. CT scan of the abdomen pelvis did not show any acute findings. Patient presented after falling. Question etiology of the fall. Aide found him sitting in a couch with a black eye. Patient's BUN and creatinine 28 and 1.67 this is baseline. Hemoglobin is 14. INR however is 4. Patient has a baseline of being on Coumadin for atrial fibrillation. Will need close monitoring. Patient's bladder scan showed over 500 cc of urine. Initially a Garcia catheter was placed it was grossly bloody and clots were noted. A 3 way catheter was then placed. Total bladder irrigation was done. The urine is clearing at this point. Patient will need close monitoring. There is no Urology at [facility]. Will contact [facility] for transfer. Discussed with family. The most likely cause of patient's bloody urine is from an enlarged prostate. He has a history of that in the past. Patient's COVID test is negative. Lab Data Result diagrams: 04/20/21 13:11 04/20/21 13:11 Labs: Lab Results 04/20/21 04/20/21 04/20/21 Range/Units 13:11 13:11 13:11 WBC 7.6 (4.8-10.8) X10*3/uL RBC 4.56 L (4.60-5.80) X10*6/uL Hgb 14.0 (14.0-18.0) g/dl Hct 42.9 (42-52) % MCV 94.1 (80-98) fL MCH 30.7 (27.0-33.0) pg MCHC 32.6 (31.0-36.0) g/dl RDW 13.4 (11.0-16.0) % Plt Count 208 (160-400) X10*3/uL MPV 9.7 (9.4-12.4) fL Immature Gran % (Auto) 0.5 H (0.0-0.4) % Neut % (Auto) 72.1 (45-73) % Lymph % (Auto) 15.3 L (20-40) % [place] % (Auto) 11.4 H (2-11) % Eos % (Auto) 0.4 (0-4) % Baso % (Auto) 0.3 (0-2) % Lymph # (Auto) 1.2 (1.2-4.9) X10*3/uL [place] # (Auto) 0.9 (0.1-1.2) X10*3/uL Eos # (Auto) 0.0 (0.0-0.4) X10*3/uL Baso # (Auto) 0.0 (0.0-0.2) X10*3/uL Abs Immat Gran (auto) 0.04 H (0.00-0.03) X10*3/uL Absolute Neuts (auto) 5.5 (2.0-8.3) X10*3/uL Absolute Nucleated RBC 0.000 (0.0-0.012) X10*3/uL Nucleated RBC % (auto) 0.0 (0.0-0.2) /100WBC PT (9.9-13.0) SEC INR (0.9-1.1) Sodium 140 (135-145) mmol/L Potassium 4.3 (3.3-5.1) mmol/L Chloride 106 (96-108) mmol/L Carbon Dioxide 23 (22-29) mmol/L Anion Gap 15 (12-20) BUN 28 H (9-16) mg/dL Creatinine 1.67 H (0.5-1.4) mg/dL Estim Creat Clear Calc 35.2 Estimated GFR 40 POC Glucose (60-115) mg/dL Random Glucose 108 (60-115) mg/dL Calcium 9.0 (8.4-10.2) mg/dL Troponin I High Sens 6.3 (<3.5-35.0) ng/L Urine Color Urine Appearance Urine pH (5.0-8.0) Ur Specific [place] (1.005-1.025) Urine Protein (NEG-TRACE) MG/DL Urine Glucose (UA) (NEG) MG/DL Urine Ketones (NEG) MG/DL Urine Blood (NEG) Urine Nitrite (NEG) Ur Leukocyte Esterase (NEG) Urine RBC (0) /HPF Urine WBC (0-4) /HPF Ur Squamous Epith Cells /LPF Urine Bacteria /LPF COVID-19 (NOAM) (Negative) COVID-19 Clin Com 04/20/21 04/20/21 04/20/21 Range/Units 13:11 13:11 13:28 WBC (4.8-10.8) X10*3/uL RBC (4.60-5.80) X10*6/uL Hgb (14.0-18.0) g/dl Hct (42-52) % MCV (80-98) fL MCH (27.0-33.0) pg MCHC (31.0-36.0) g/dl RDW (11.0-16.0) % Plt Count (160-400) X10*3/uL MPV (9.4-12.4) fL Immature Gran % (Auto) (0.0-0.4) % Neut % (Auto) (45-73) % Lymph % (Auto) (20-40) % [place] % (Auto) (2-11) % Eos % (Auto) (0-4) % Baso % (Auto) (0-2) % Lymph # (Auto) (1.2-4.9) X10*3/uL [place] # (Auto) (0.1-1.2) X10*3/uL Eos # (Auto) (0.0-0.4) X10*3/uL Baso # (Auto) (0.0-0.2) X10*3/uL Abs Immat Gran (auto) (0.00-0.03) X10*3/uL Absolute Neuts (auto) (2.0-8.3) X10*3/uL Absolute Nucleated RBC (0.0-0.012) X10*3/uL Nucleated RBC % (auto) (0.0-0.2) /100WBC PT 46.4 H (9.9-13.0) SEC INR 4.0 H (0.9-1.1) Sodium (135-145) mmol/L Potassium (3.3-5.1) mmol/L Chloride (96-108) mmol/L Carbon Dioxide (22-29) mmol/L Anion Gap (12-20) BUN (9-16) mg/dL Creatinine (0.5-1.4) mg/dL Estim Creat Clear Calc Estimated GFR POC Glucose 104 (60-115) mg/dL Random Glucose (60-115) mg/dL Calcium (8.4-10.2) mg/dL Troponin I High Sens (<3.5-35.0) ng/L Urine Color RED Urine Appearance TURBID Urine pH 6.0 (5.0-8.0) Ur Specific [place] 1.020 (1.005-1.025) Urine Protein 2+ H (NEG-TRACE) MG/DL Urine Glucose (UA) NEG (NEG) MG/DL Urine Ketones NEG (NEG) MG/DL Urine Blood 3+ H (NEG) Urine Nitrite NEG (NEG) Ur Leukocyte Esterase TRACE H (NEG) Urine RBC 76-150 H (0) /HPF Urine WBC 30-49 H (0-4) /HPF Ur Squamous Epith Cells NONE /LPF Urine Bacteria TRACE /LPF COVID-19 (NOAM) (Negative) COVID-19 Clin Com 04/20/21 Range/Units 15:45 WBC (4.8-10.8) X10*3/uL RBC (4.60-5.80) X10*6/uL Hgb (14.0-18.0) g/dl Hct (42-52) % MCV (80-98) fL MCH (27.0-33.0) pg MCHC (31.0-36.0) g/dl RDW (11.0-16.0) % Plt Count (160-400) X10*3/uL MPV (9.4-12.4) fL Immature Gran % (Auto) (0.0-0.4) % Neut % (Auto) (45-73) % Lymph % (Auto) (20-40) % [place] % (Auto) (2-11) % Eos % (Auto) (0-4) % Baso % (Auto) (0-2) % Lymph # (Auto) (1.2-4.9) X10*3/uL [place] # (Auto) (0.1-1.2) X10*3/uL Eos # (Auto) (0.0-0.4) X10*3/uL Baso # (Auto) (0.0-0.2) X10*3/uL Abs Immat Gran (auto) (0.00-0.03) X10*3/uL Absolute Neuts (auto) (2.0-8.3) X10*3/uL Absolute Nucleated RBC (0.0-0.012) X10*3/uL Nucleated RBC % (auto) (0.0-0.2) /100WBC PT (9.9-13.0) SEC INR (0.9-1.1) Sodium (135-145) mmol/L Potassium (3.3-5.1) mmol/L Chloride (96-108) mmol/L Carbon Dioxide (22-29) mmol/L Anion Gap (12-20) BUN (9-16) mg/dL Creatinine (0.5-1.4) mg/dL Estim Creat Clear Calc Estimated GFR POC Glucose (60-115) mg/dL Random Glucose (60-115) mg/dL Calcium (8.4-10.2) mg/dL Troponin I High Sens (<3.5-35.0) ng/L Urine Color Urine Appearance Urine pH (5.0-8.0) Ur Specific [place] (1.005-1.025) Urine Protein (NEG-TRACE) MG/DL Urine Glucose (UA) (NEG) MG/DL Urine Ketones (NEG) MG/DL Urine Blood (NEG) Urine Nitrite (NEG) Ur Leukocyte Esterase (NEG) Urine RBC (0) /HPF Urine WBC (0-4) /HPF Ur Squamous Epith Cells /LPF Urine Bacteria /LPF COVID-19 (NOAM) Negative (Negative) COVID-19 Clin Com See Note ECG Data Interpretation: Atrial fibrillation pattern heart rate was 80. Leftward axis. Positive nonspecific T-wave flattening noted. Critical Care Time Critical Care Time Critical Care Time: Yes Total Critical Care Time: 40 Attestation: I have personally provided 40 minutes of critical care time exclusive of time spent on separately billable procedures. Time includes review of lab data, radiology results, discussion with consultants, and monitoring for potential decompensation. Interventions were performed as documented above Discharge Plan Discharge Clinical Impression: Afib, Syncope, Elevated INR, Head injury, Hematuria Patient Disposition: [facility] Transfer Details: Transfer to [facility] Prescriptions: No Action folic acid 1 mg tablet 1 mg PO DAILY 30 Days Qty: 30 RF: 3 (DME) Adult disposeable briefs See Rx Instructions .Route .MEDSUPPLY Qty: 30 RF: 12 risperidone 0.25 mg tablet 0.25 mg PO DAILY PRN (Reason: for restless legs) Qty: 30 RF: 3 allopurinol 100 mg tablet 100 mg PO DAILY Qty: 30 RF: 3 atorvastatin 40 mg tablet 40 mg PO DAILY 30 Days Qty: 30 RF: 3 terazosin 5 mg capsule 5 mg PO DAILY 30 Days Qty: 30 RF: 0 warfarin 5 mg tablet 5 mg PO Q OTHER DAY 30 Days Qty: 15 RF: 4 (DME) diaper,brief,adult,disposable Misc See Rx Instructions .MEDSUPPLY Qty: 100 RF: 3 warfarin [Coumadin] 2.5 mg Tablet 2.5 mg PO Q OTHER DAY RF: 0 finasteride 5 mg tablet 5 mg PO DAILY RF: 0 donepezil 5 mg tablet 5 mg PO DAILY RF: 0 tolterodine 4 mg capsule,extended release 24hr 4 mg PO DAILY 30 Days Qty: 30 RF: 0 amlodipine 2.5 mg tablet 2.5 mg PO DAILY Qty: 90 RF: 1
[2021-04-20 13:17] LABS: MANUAL DIFF FLAG NO
[2021-04-20 13:22] LABS: Basophils Percent Auto 0.3 % (0-2); Eosinophils Percent Auto 0.4 % (0-4); Hematocrit 42.9 % (42-52); Imm Gran Abs Auto 0.04 X10*3/uL (0.00-0.03); Imm Gran Pct Auto 0.5 % (0.0-0.4); Lymphocytes Absolute Auto 1.2 X10*3/uL (1.2-4.9); Lymphocytes Percent Auto 15.3 % (20-40); Mean Corpuscular HGB Conc 32.6 g/dl (31.0-36.0); Mean Corpuscular Hemoglobin 30.7 pg (27.0-33.0); Mean Corpuscular Volume 94.1 fL (80-98); Mean Platelet Volume 9.7 fL (9.4-12.4); Monocytes Absolute Auto 0.9 X10*3/uL (0.1-1.2); Monocytes Percent Auto 11.4 % (2-11); Neutrophils Absolute Auto 5.5 X10*3/uL (2.0-8.3); Neutrophils Percent Auto 72.1 % (45-73); Platelet Count 208 X10*3/uL (160-400); Red Blood Count 4.56 X10*6/uL (4.60-5.80); Red Cell Distribution Width 13.4 % (11.0-16.0); White Blood Count 7.6 X10*3/uL (4.8-10.8)
[2021-04-20 13:31] LABS: Glucose, Whole Blood 104 mg/dL (60-115)
[2021-04-20 13:33] LABS: Prothrombin Time 46.4 SEC (9.9-13.0)
[2021-04-20 13:48] LABS: Anion Gap 15 (12-20); Blood Urea Nitrogen 28 mg/dL (9-16); Carbon Dioxide 23 mmol/L (22-29); Chloride 106 mmol/L (96-108); Creatinine Clr Calc Pharmacy 35.2; Estimated Glomerular Filt Rate 40; Glucose Random 108 mg/dL (60-115); Potassium 4.3 mmol/L (3.3-5.1); Sodium 140 mmol/L (135-145)
[2021-04-20 13:50] LABS: Appearance Urine TURBID; Color Urine RED; Glucose Urine UA NEG (NEG); Leukocyte Esterase Urine TRACE (NEG); Nitrite Urine NEG (NEG); UACC Culture Trigger YES; Urine Blood 3+ (NEG); Urine Ketones NEG (NEG); Urine Protein 2+ MG/DL (NEG-TRACE)
[2021-04-20 13:54] LABS: Troponin-I High Sensitivity 6.3 ng/L (<3.5-35.0)
[2021-04-20 13:55] LABS: Bacteria Urine TRACE /LPF; UACC CULT YES; WBC Urine 30-49 /HPF (0-4)
[2021-04-20] MEDS: Lidocaine HCl 2 % Urojet 10 ML JEL.PF.APP TOPICAL (15:45)
[2021-04-20 16:21] LABS: COVID-19 Test Negative (Negative); IDNOW Serial# 08D9AD1C
[2021-04-20 17:12] VITALS: BP 147/77; PULSE 87; RESP 16; TEMP 36.3; O2SAT 96
--- NOTE | 2021-04-20 17:14 | PC.NURSE ---
ATTEMPTED TO GIVE NURSE-NURSE REPORT BUT RN AT [facility] WAS UNAVAILABLE TO TAKE PHONE CALL THIS RN LEFT INFORMATION WITH THE ASSEMBLY LINE WORKER FOR THE NURSE TO CALL BACK WHEN SHE IS AVAILABLE IN ORDER TO GIVE REPORT
== END 2021-04-20 17:54 | disposition short-term general hospital (02) ==
PROVIDERS: Emergency Provider Emergency Medicine Emergency Medical Services; PCP Nurse Practitioner Family
DX: I48.91 Unspecified atrial fibrillation (principal); R31.9 Hematuria, unspecified; R79.1 Abnormal coagulation profile; R55 Syncope and collapse; S00.11XA Contusion of right eyelid and periocular area, initial encounter; Y93.9 Activity, unspecified; R53.1 Weakness; I10 Essential (primary) hypertension; W19.XXXA Unspecified fall, initial encounter; F03.90 Unspecified dementia, unspecified severity, without behavioral disturbance, psychotic disturbance, mood disturbance, and anxiety; Y92.019 Unspecified place in single-family (private) house as the place of occurrence of the external cause; Y99.9 Unspecified external cause status; Z79.01 Long term (current) use of anticoagulants; Z85.46 Personal history of malignant neoplasm of prostate; Z20.822 Contact with and (suspected) exposure to COVID-19
CPT/HCPCS: 36415; 51702; 70450; 70486; 72125; 74176; 80048; 81001; 82947; 84484; 85025; 85610; 87086; 87635; 93005; 99285; 99291